=== PATIENT | female | born 1990 | race Two or more races ===

== ENCOUNTER 2020-12-19 22:55 | Emergency (ER) | payer BC ==
[~2020-12-19] VITALS: Ht 170.2 cm; Wt 90.7 kg
== END 2020-12-20 06:02 | disposition home or self-care (01) ==
LOC: ER 22:55
DX: S80.01XA Contusion of right knee, initial encounter (principal); M79.604 Pain in right leg; R10.2 Pelvic and perineal pain; W01.198A Fall on same level from slipping, tripping and stumbling with subsequent striking against other object, initial encounter; Y93.E1 Activity, personal bathing and showering; Y92.59 Other trade areas as the place of occurrence of the external cause; Y99.8 Other external cause status